=== PATIENT | male | born 1965 | race Caucasian/White ===

== ENCOUNTER 2019-03-29 09:19 | Observation (INO) ==
--- NOTE | 2019-03-21 14:16 | Anesthesiology Consultation ---
Date of Service March 21, 2019 Assessment & Plan (1) Encounter for pre-operative examination: - Surgery originally scheduled for 02/19/19 but rescheduled as patient chewed tobacco AM DOS. Spoke with patient's via phone 03/21/19 to reiterate need for NPO/no chewing tobacco AM DOS. She voiced understanding and states she will relay information to patient. - Check BSG AM DOS Chart Review Chart Review: Acceptable Risk for Surgery and Patient NOT seen in Pre Admission Testing History Surgery Operation Date: 03/29/19 12:45 Proposed Procedures p L4-L5 Removal Implants, L2-L3, L3-L4 Laminectomy and Fusion - Yoni Saenz DO Height/Weight Height: 5 ft 11 in Weight: 121.109 kg Allergies Allergy/AdvReac Type Severity Reaction Status Date / Time Penicillins Allergy Unknown Verified 03/21/19 09:28 Medications Home Medications Medication Instructions Recorded Confirmed Last Taken amlodipine 10 mg PO QPM 01/22/19 03/21/19 02/18/19 08:00 atorvastatin 10 mg PO PM 01/22/19 03/21/19 02/18/19 18:00 carvedilol 25 mg PO BID 01/22/19 03/21/19 02/18/19 18:00 levothyroxine 137 mcg PO QPM 01/22/19 03/21/19 02/18/19 21:00 meloxicam 15 mg PO QPM PRN 01/22/19 03/21/19 02/14/19 08:00 metformin 500 mg PO QPM 01/22/19 03/21/19 02/18/19 18:00 multivitamin 1 tab PO QPM 01/22/19 03/21/19 02/18/19 08:00 olmesartan-hydrochlorothiazide 1 tab PO QPM 01/22/19 03/21/19 02/18/19 18:00 spironolactone 50 mg PO BID 01/22/19 03/21/19 02/18/19 08:00 Past Medical History Medical History Chronic back pain B/L BUTTOCKS; LEFT TOES NEUROPATHY Diabetes mellitus, type 2 NIDDM Hyperlipidemia Hypertension Hypothyroidism Obesity Sleep apnea S/P UPPP; CPAP (NON-COMPLIANT) Stroke X2; 10+ YEARS AGO= NO RESIDUAL EFFECTS Past Family History Family History Sister Family history of diabetes mellitus Mother Family history of diabetes mellitus Past Surgical History Surgical History History of arthroscopy of left knee History of colonoscopy History of spinal fusion L4-L5 History of tonsillectomy History of uvulopalatopharyngoplasty Social History Smoking Status: Never smoker tobacco type: smokeless tobacco Do You Dip or Chew Tobacco: Yes Hx Alcohol Use: Yes Alcohol type: beer alcohol intake frequency: a few times a week Hx Substance Use: No substance use type: does not use Testing Laboratory Results 01/31/19 WBC 9.14 H/H 15.5/43.3 PLATELETS 233 SODIUM 138 POTASSIUM 4.2 CHLORIDE 106 CO2 25 BUN 26 CREATININE 1.22 HGBA1C 7.0% PT 10.3 PTT 24.8 INR 1.0 02/19/19 GLUCOSE 140 Electrocardiogram Date: 01/31/19 NSR at 90bpm. iRBBB. Chest X-Ray Date: 01/31/19 Findings: + NAD Mild right hemidiaphragmatic elevation is unchanged. Stress Test Date: 12/06/14 Type: exercise Negative exercise stress ECHO/EKG for ischemia at 88% MPHR. 6.5 METS. Mild cLVH. EF 60-65%. Grade I-II DD. No significant valvular disease.
--- NOTE | 2019-03-28 11:11 | History and Physical Report ---
DATE OF ADMISSION: 03/29/2019 CHIEF COMPLAINT: Low back pain, hip pain and bilateral lower extremity difficulty. He is set up for elective spinal surgery, removal of old implants, and lamina fusion L2-L4. HISTORY OF PRESENT ILLNESS: Gavin is a pleasant, alert, oriented, intelligent individual. He has low back pain, bilateral lower extremity difficulties, ongoing now for several months' duration. PAST MEDICAL HISTORY: Heart disease, hypertension, childhood diseases. No carcinoma, kidney disease, or hepatitis. PAST SURGICAL HISTORY: Lumbar spine surgery, left knee surgery, left wrist surgery. ALLERGIES: PENICILLIN. FAMILY HISTORY: Heart disease. SOCIAL HISTORY: , mild alcohol, no tobacco. Active lifestyle. REVIEW OF SYSTEMS: Twelve-system review, he has no fevers, sweats, chills, no weight loss or gain. Denies ear, nose and throat complaints. Denies chest pain, palpitations. Denies nausea, vomiting, bowel and bladder issues. His major positive review is his joint pain, stiffness, weakness, muscle pain and cramping. PHYSICAL EXAMINATION: GENERAL: He is 5 feet 10 inches, 260, alert, oriented. He does not appear depressed. He is engaging. VITAL SIGNS: Blood pressure 148/80, pulse 88, respiratory rate 16. HEENT: Pupils react to light and accommodation. Nose and throat clear. CARDIAC: Normal S1, S2. LUNGS: Clear. ABDOMEN: Soft, nontender. NEUROLOGIC: He has numbness and tingling, associated weakness to his lower extremity. Decreased range of motion. Essentially absent reflexes. PLAN: Includes a removal of implants L4-L5 and lamina fusion L2-L4.
[~2019-03-29 09:19] MED LIST: LR 15ML/HR IV SCH
[2019-03-29] MEDS ORDERED: GELATIN SPONGE SZ 100 ONE ×2 (10:36→11:59)
[2019-03-29] MEDS ORDERED: VANCOMYCIN HCL 1000MG/20ML VIAL ONE (10:36)
[2019-03-29] MEDS ORDERED: BACITRACIN INJ 50,000 UNIT VIAL ONE ×2 (10:37→11:07)
[2019-03-29] MEDS ORDERED: THROMBIN FOR SOLN 20000 UNIT KIT ONE (10:37)
[2019-03-29] MEDS ORDERED: BUPIVACAINE/EPINEPHRINE 0.5% MPF 1:200,000 30 ML VIAL ONE (10:37)
[2019-03-29] MEDS ORDERED: DEXAMETHASONE SOD INJ 4 MG/ML VIAL ONE (10:42)
[2019-03-29] MEDS ORDERED: PROPOFOL IV EMULSION 10 MG/ML 20 ML VIAL IV ONE (10:42)
[2019-03-29] MEDS ORDERED: ONDANSETRON INJ 2 MG/ML 2 ML VIAL ONE (10:42)
[2019-03-29] MEDS ORDERED: LIDOCAINE HCL 2% 2 ML VIAL/AMP(20MG/ML) INFIL ONE (10:42)
[2019-03-29] MEDS ORDERED: PHENYLEPHRINE HCL 10 MG/ML VIAL ONE (10:42)
[2019-03-29] MEDS ORDERED: GLYCOPYRROLATE 0.2 MG/ML VIAL ONE (10:42)
[2019-03-29] MEDS ORDERED: fentaNYL citrate 100 MCG/2 ML VIAL ONE ×3 (10:42→13:51)
[2019-03-29] MEDS ORDERED: SUCCINYLCHOLINE CHLORIDE 20 MG/ML 10 ML VIAL ONE (10:42)
[2019-03-29] MEDS ORDERED: NEOSTIGMINE METHYLSULFATE 5 MG/5 ML SYR ONE (10:42)
[2019-03-29] MEDS ORDERED: ePHEDrine sulfate 50 MG/ML AMP ONE (10:42)
[2019-03-29] MEDS ORDERED: MIDAZOLAM HCL 1 MG/ML 2ML VIAL ONE (10:42)
--- NOTE | 2019-03-29 10:49 | History & Physical Bridge Note ---
Date of Service March 29, 2019 History & Physical Bridge Note I have examined the patient, reviewed the History & Physical and in the interval since the performance of the History & Physical I have noted the following changes of clinical significance: no changes noted
[2019-03-29] MEDS ORDERED: LABETALOL HCL IV 5 MG/ML 20ML IV PRN (11:33)
[2019-03-29] MEDS ORDERED: NALOXONE HCL 0.4 MG/1 ML VIAL/CARP IV PRN (11:33)
[2019-03-29] MEDS ORDERED: ePHEDrine sulfate 50 MG/ML AMP IV PRN (11:33)
[2019-03-29] MEDS ORDERED: ATROPINE SULFATE 0.1 MG/ML 10ML SYR IV PRN (11:33)
[2019-03-29] MEDS ORDERED: FLUMAZENIL 0.1 MG/1 ML 10 ML VIAL IV PRN (11:33)
[2019-03-29] MEDS ORDERED: ONDANSETRON INJ 2 MG/ML 2 ML VIAL IV PRN ×2 (11:33→15:55)
[2019-03-29] MEDS ORDERED: PROMETHAZINE HCL 12.5 MG in SODIUM CHLORIDE 0.9% 50 ML IV PRN (11:33)
[2019-03-29] MEDS ORDERED: CEFAZOLIN 3000MG 72.5 ML IV ONE (11:40)
[2019-03-29] MEDS ORDERED: CEFAZOLIN 250 MG/ML 1 GM VIAL ONE (11:52)
[2019-03-29] MEDS ORDERED: ROCURONIUM BROMIDE 10 MG/ML 5 ML VIAL ONE (11:58)
[2019-03-29] MEDS ORDERED: ALBUMIN HUMAN 5% 12.5 GM/250 ML VIAL IV ONE (12:58)
[2019-03-29] MEDS ORDERED: HYDROmorphone INJ 2 MG/ML SYR/VIAL ONE (13:06)
--- NOTE | 2019-03-29 13:34 | Fluoroscopy Report ---
INTRAOPERATIVE RADIOGRAPH CLINICAL HISTORY: L2-L4 spinal fusion. Hardware removal. Fluoroscopy time: 5 seconds. FINDINGS: A single spot fluoroscopic view of the lumbar spine is presented. There are changes of lami nectomy and posterior fusion, reportedly at L2-L4. Interpedicular screws are present at all levels. T he orthopedic hardware appears intact. IMPRESSION: Intraoperative image of the lumbar spine as above. Electronically signed by: Jorge Chatman M.D. 03/29/2019 1:32 PM
--- NOTE | 2019-03-29 14:01 | Post Operative Brief Note ---
Immediate Post Op Note v1 Date of Surgery March 29, 2019 Pre & Post Diagnosis Operation Date: 03/29/19 10:55 Pre-Op Diagnosis: Spinal Stenosis, Disc Herniation Post-Op Diagnosis: Spinal Stenosis, Disc Herniation Procedure Operation Date: 03/29/19 10:55 Actual Procedures p L4-L5 Removal Implants, L2-L3, L3-L4 Laminectomy and Fusion(Not Applicable) - Yoni Saenz DO Surgeon Yoni Saenz DO Fingerprint Technician marie Estimated Blood Loss 400 Findings Consistent with Post-Op Diagnosis Drains Bashir Catheter and Hemovac Drain
[2019-03-29] MEDS: HYDROmorphone INJ 1 MG/ML SYRINGE IV PRN ×4 (14:22→14:37)
--- NOTE | 2019-03-29 14:58 | Anesthesiology Progress Note ---
Date of Service March 29, 2019 Anesthesia Post Procedure Vital Signs Vital Signs: Temp Pulse Resp BP Pulse Ox 03/29/19 14:50 73 15 124/86 94 03/29/19 14:40 55 L 15 132/75 93 03/29/19 14:30 63 15 128/77 95 03/29/19 14:20 36.3 C L 62 14 130/80 97 03/29/19 14:10 36.3 C L 71 14 129/80 95 03/29/19 09:50 36.7 C 72 18 159/99 H 95 Pain Intensity Lower Back: Pain Intensity: 3 Transfer of Care Handoff Completed per policy Notes Mental Status: alert / awake / arousable Patient Amnestic to Procedure: Yes Nausea / Vomiting: adequately controlled Pain: adequately controlled Airway Patency, RR, SpO2: stable & adequate BP & HR: stable & adequate Hydration State: stable & adequate Anesthetic Complications: no major complications apparent Notes: patient is w/o c/o visual disturbances.
[2019-03-29] MEDS ORDERED: MAGNESIUM HYDROXIDE SUSP 30 ML UDC PO PRN (15:55)
[2019-03-29] MEDS ORDERED: ACETAMINOPHEN 1,000 MG/100 ML VIAL IV PRN (15:55)
[2019-03-29] MEDS ORDERED: BISACODYL 10 MG SUPP PR PRN (15:55)
[2019-03-29] MEDS: METFORMIN HCL 500 MG TAB PO SCH (16:59)
[2019-03-29] MEDS: SPIRONOLACTONE 25 MG TAB PO SCH (17:00)
[2019-03-29] MEDS: CEFAZOLIN 2000MG 2,000 MG/15 ML SYR IV SCH (20:05)
[2019-03-29] MEDS: CARVEDILOL 25 MG TAB PO SCH (20:06)
[2019-03-29] MEDS: OLMESARTAN MEDOXOMIL 40 MG TAB PO SCH (20:06)
[2019-03-29] MEDS: AMLODIPINE BESYLATE 5 MG TAB PO SCH (20:08)
[2019-03-29] MEDS: ATORVASTATIN 10 MG TAB PO SCH (20:08)
[2019-03-29] MEDS: HYDROmorphone INJ 0.5 MG/0.5 ML SYR IV PRN (20:08)
[2019-03-29] MEDS: DOCUSATE SODIUM/SENNA 50/8.6MG TAB PO SCH (20:08)
[2019-03-29] MEDS: SODIUM CHLORIDE 0.9% 1000ML 1,000 ML IV SCH (20:09)
[2019-03-29] MEDS: hydroCHLOROthiazide 25 MG TAB PO SCH (20:09)
[2019-03-29] MEDS ORDERED: NON-FORMULARY MEDICATION (Olmesartan-Hydrochlorothiazide 1 TAB) PO SCH (21:00)
[2019-03-30] MEDS: OXYCODONE HCL IR 5 MG TAB (IMMEDIATE RELEASE) PO PRN ×5 (00:05→21:43)
[2019-03-30] MEDS: HYDROmorphone INJ 0.5 MG/0.5 ML SYR IV PRN ×3 (00:48→15:17)
[2019-03-30] MEDS: CEFAZOLIN 2000MG 2,000 MG/15 ML SYR IV SCH (03:49)
[2019-03-30] MEDS: LEVOTHYROXINE SODIUM 137 MCG TABLET PO SCH (05:49)
[2019-03-30] MEDS: SODIUM CHLORIDE 0.9% 1000ML 1,000 ML IV SCH (05:55)
--- NOTE | 2019-03-30 07:48 | Anesthesiology Progress Note ---
Date of Service March 30, 2019 Anesthesia Post Procedure Vital Signs Vital Signs: Temp Pulse Pulse Resp BP Pulse Ox 03/30/19 07:00 36.7 C 63 18 126/81 95 03/30/19 03:47 36.6 C 66 18 114/72 93 03/29/19 23:13 36.5 C 80 18 113/72 96 03/29/19 18:45 36.4 C L 69 17 144/72 H 93 03/29/19 16:51 36.4 C L 83 17 122/70 95 03/29/19 16:45 36.4 C L 52 L 16 131/64 95 03/29/19 16:17 36.4 C L 79 17 132/78 96 03/29/19 15:39 54 L 19 125/78 93 03/29/19 15:25 78 19 139/78 95 03/29/19 15:10 66 16 133/77 93 03/29/19 15:00 36.4 C L 54 L 16 123/78 93 03/29/19 14:50 73 15 124/86 94 03/29/19 14:40 55 L 15 132/75 93 03/29/19 14:30 63 15 128/77 95 03/29/19 14:20 36.3 C L 62 14 130/80 97 03/29/19 14:10 36.3 C L 71 14 129/80 95 03/29/19 09:50 36.7 C 72 18 159/99 H 95 Pain Intensity Lower Back: Pain Intensity: 7 Notes Mental Status: alert / awake / arousable and participated in evaluation Patient Amnestic to Procedure: Yes Nausea / Vomiting: adequately controlled Pain: adequately controlled Airway Patency, RR, SpO2: stable & adequate BP & HR: stable & adequate Hydration State: stable & adequate Anesthetic Complications: no major complications apparent and Pt Satisfied with anesthetic care
--- NOTE | 2019-03-30 08:00 | Operative Report ---
DATE OF OPERATION: 03/29/2019 PREOPERATIVE DIAGNOSES: Instability, stenosis and disc herniation L2-L5. POSTOPERATIVE DIAGNOSES: Instability, stenosis and disc herniation L2-L5. DESCRIPTION OF PROCEDURE: The patient was marked in the preop area. A bridge note provided. He was taken back to the operating room and general intubated anesthetic provided, Bashir catheter provided, placed prone, prepped and draped sterile. We used his old skin incision. We went superior approximately an inch and half. We made a skin incision deep fascial incision, put in deep self-retaining retractor. We worked diligently to get all bleeders. It was quite difficult. It was quite obese. We finally were able to retract out over the implants. I was able to use a rongeur clear off the bone. With some difficulty, we were able to remove the longitudinal elliot from the 4th-5th pedicle screw. I felt that the pedicle screws themselves were strong and stable. We then decompressed the lumbar spine L2-L3, L3-L4, somewhat of L4-L5. We provided foraminotomies, partial facetectomies and decompressed all nerve root, mostly with ligamentum flavum hypertrophy. We examined the disc structures as well and did a formal discectomy at L3-4. The L2 disc I thought was small enough that did not need to be evacuated. All the neurological structures were decompressed. We then instrumented the spine and were able to safely take out the elliot between 4 and 5, safely get pedicle screws up to 2, 3 and then 4 and 5 of the lumbar spine from prior fixation. I was pleased with the positioning. They were locked down with a longitudinal elliot of approximately 120 mm in length. This was firmly fixed. We irrigated. We then bone grafted out the transverse process from 2-3-4, so a 2 level fusion. We then closed over vancomycin powder over Hemovac drain in layer like fashion. Sterile dressing applied. The patient was returned to PACU improved, stable condition. No apparent complications. IMPLANTS USED: By the [employer]. BLOOD LOSS: 400 mL. SURGEON: Yoni Saenz DO DERRICK HAND: Regis Vang PA-C. PROCEDURES: As stated 1. Decompression laminectomy, foraminotomy, partial facetectomy, L2-3, L3-4 and partial L4-5, removal of old elliot from L4 to L5. 2. Pedicle screw instrumentation L2, L3, L4 and L5 lumbar spine. The prior two implants were already placed. It was a fusion from L2-3 and L3-4. Discectomy at L3-L4. ESTIMATED BLOOD LOSS: 400 mL. I attest to the content of the Intraoperative Record and any orders documented therein. Any exceptions are noted below. MTDD
[2019-03-30] MEDS: CARVEDILOL 25 MG TAB PO SCH ×2 (08:54→21:43)
[2019-03-30] MEDS ORDERED: hydroCHLOROthiazide 25 MG TAB PO SCH (09:00)
[2019-03-30] MEDS ORDERED: OLMESARTAN MEDOXOMIL 40 MG TAB PO SCH (09:00)
[2019-03-30] MEDS: SPIRONOLACTONE 25 MG TAB PO SCH (17:44)
[2019-03-30] MEDS: METFORMIN HCL 500 MG TAB PO SCH (17:44)
[2019-03-30] MEDS: DOCUSATE SODIUM/SENNA 50/8.6MG TAB PO SCH (21:43)
[2019-03-30] MEDS: OLMESARTAN MEDOXOMIL 40 MG TAB PO SCH (21:43)
[2019-03-30] MEDS: ATORVASTATIN 10 MG TAB PO SCH (21:43)
[2019-03-30] MEDS: hydroCHLOROthiazide 25 MG TAB PO SCH (21:43)
[2019-03-30] MEDS: AMLODIPINE BESYLATE 5 MG TAB PO SCH (21:43)
[2019-03-31] MEDS: LEVOTHYROXINE SODIUM 137 MCG TABLET PO SCH (05:50)
[2019-03-31] MEDS: OXYCODONE HCL IR 5 MG TAB (IMMEDIATE RELEASE) PO PRN (05:53)
[2019-03-31] MEDS: HYDROmorphone INJ 0.5 MG/0.5 ML SYR IV PRN (07:21)
[2019-03-31] MEDS: CARVEDILOL 25 MG TAB PO SCH (07:21)
--- NOTE | 2019-03-31 21:48 | Discharge Summary ---
Gavin is delightful. He has had major reconstructive spine surgery approximately 36 hours ago. He was admitted to my hospital here at [facility] observation status. He was up and out of bed on day 1 and discharged home the morning of day 2, improved stable condition. He had an uneventful course except for he had trouble voiding the evening of his first day postop. He was discharged home on improved stable condition. Instructions given. Precautions given. He has a brace for support. He has diet restrictions and he has prescriptions for medication on his chart. Follow up in 12 days.
--- NOTE | 2019-04-03 21:43 | Operative Report ---
DATE OF OPERATION: 03/29/2019 PREOPERATIVE DIAGNOSES: Spinal stenosis, disc herniation L2-3, L3-4 lumbar spine, prior surgery L4-L5 lumbar spine. POSTOPERATIVE DIAGNOSES: Spinal stenosis, disc herniation L2-3, L3-4 lumbar spine, prior surgery L4-L5 lumbar spine. PROCEDURE: Included a laminectomy, L2-L3, L3-L4 lumbar spine; discectomy L3-L4 lumbar spine; removal of implants, L4-L5 lumbar spine; and reinstrumentation of the spine L2-3 to 4-5 lumbar spine. Posterior lateral fusion, no interbody fusion. SURGEON: Yoni Saenz DO FOUNDRY OPERATOR: Regis Vang PA-C IMPLANTS USED: [employer] Plans. COUNTS: Sponge and needle count correct at the close. ESTIMATED BLOOD LOSS: 350 mL DESCRIPTION OF PROCEDURE: The patient was taken to the Operating Room and prior to this identified in the holding area. He was brought to the Operating Room, a general intubated, anesthetic provided to the patient. Bashir catheter administered. Placed prone, scrubbed, prepped, and draped sterile. We made a skin incision, fascial incision. We came down onto the spinal elements. I put in a deep self-retaining retractor. The patient was quite obese. The blades were approximately 4 inches in length. We were able to get out the old implants. I carefully dissected the bone and soft tissue off the rods between 4 and 5. I was able to remove the elliot fairly readily. We then irrigated. We then went up and delicately did a decompression between 3-4 and 2-3 of the lumbar spine, taking off the lamina, ligamentum flavum hypertrophy. The 3-4 level had a relative good size disc herniation that was also performed a discectomy. I thought that the spinal canal was too tight to appropriately perform a PLIF procedure and interbody device. I think I would have tethered on the spinal cord and possibly cause irreversible damage. We instrumented the spine. I safely was able to get pedicle screws into 2, 3 and 4 of the lumbar spine to initiate the construct. We irrigated thoroughly, bone grafted that over the transverse processes initiating the fusion from 2-3-4 lumbar spine. We closed in layers over vancomycin powder. Sterile dressing applied. The patient returned to PACU stable. There were no apparent complications much. I attest to the content of the Intraoperative Record and any orders documented therein. Any exception s are noted below.
== END 2019-03-31 10:20 | disposition home or self-care (01) ==
LOC: ASU 09:19 → 3E 09:19